=== PATIENT | female | born 1995 | race Caucasian/White ===

== ENCOUNTER 2022-04-20 20:48 | Emergency (ER) | payer OTHER ==
[~2022-04-20 20:48] MED LIST: 3IN1 COMMODE; BENADRYL25 MG PO; CELEXA20 MG PO; CYPROHEPTADINE H4 M1 PO; DICLEGIS DR 101 EACH PO; MACROBID100 MG PO; PEPCID AC20 MG PO; PERCOCET 5-3251 EACH PO; PREDNISONE 10MG10 MG PO; VITAMIN D2000 UNIT PO; pre natal vit
[2022-04-20] MEDS ORDERED: IBU800 MG PO (23:07)
== END 2022-04-20 23:58 | disposition home or self-care (01) ==
LOC: FER 20:48
DX: S93.401A Sprain of unspecified ligament of right ankle, initial encounter (principal); Z88.0 Allergy status to penicillin; W10.9XXA Fall (on) (from) unspecified stairs and steps, initial encounter; X50.1XXA Overexertion from prolonged static or awkward postures, initial encounter; Y93.89 Activity, other specified; Y92.009 Unspecified place in unspecified non-institutional (private) residence as the place of occurrence of the external cause
CPT/HCPCS: 73610; 73630